=== PATIENT | female | born 1970 | race Two or more races ===

== ENCOUNTER 2020-01-04 09:30 | Day surgery (SDC) | payer OTHER ==
[~2020-01-04 09:30] MED LIST: GAS-X125 M1 PO; INTEGRA F CAPS1 EACH PO; Intestinex CAP PO; OXYC1TAB9 PO; PANTOPRAZOLE SO40 MG PO; PRILO PO; PRILOSEC10 MG; PROTONIX40 MG PO; ULTRACET PO
== END 2020-01-04 14:10 | disposition home or self-care (01) ==
LOC: AMB-ENDOS 09:30
PROVIDERS: ATTEND Surgery
DX: K57.30 Diverticulosis of large intestine without perforation or abscess without bleeding (principal); R19.4 Change in bowel habit; R10.32 Left lower quadrant pain; K81.1 Chronic cholecystitis